=== PATIENT | male | born 1975 | race Caucasian/White ===

== ENCOUNTER 2018-03-31 14:22 | Emergency (ER) | payer OTHER ==
[2018-03-31] MEDS: ONDANSETRON 4MG/2ML VIAL (J2405) IV (15:11)
[2018-03-31 15:12] LABS: KETONE, URINE AUTO RFX NEGATIVE (NEGATIVE); LEUKOCYTE ESTERASE UR AUTO RFX NEGATIVE (NEGATIVE); MUCUS, URINE RFX SMALL (NEGATIVE); NITRITE, URINE AUTO RFX NEGATIVE (NEGATIVE); RBC, URINE AUTO RFX 1 /HPF (0-3); SPECIFIC GRAVITY UR AUTO RFX 1.023 (1.002-1.035); SQUAM EPITHELIAL CELL UR AURFX 0 /HPF (0-6); WBC, URINE AUTO RFX 0 /HPF (0-3)
[2018-03-31] MEDS: NS 1,000 ML IV (15:12)
[2018-03-31 15:23] LABS: BASO # 0.1 10^3/uL (0.0-0.2); BASO % 0.7 % (0.0-1.0); EOS # 0.1 10^3/uL (0.0-0.50); EOS % 1.1 % (0.0-3.0); IMMATURE GRANULOCYTE % 0.4 % (0-3.0); LYMPH # 3.3 10^3/uL (1.5-4.5); LYMPH % 39.1 % (24.0-44.0); MEAN CORPUSCULAR HEMOGLOBIN 29.7 pg (27.0-33.0); MEAN CORPUSCULAR HGB CONC 34.1 g/dl (32.0-36.5); MEAN CORPUSCULAR VOLUME 86.9 fl (80.0-96.0); MONO # 0.6 10^3/uL (0.0-0.8); MONO % 6.6 % (0.0-5.0); NEUTROPHILS # 4.4 10^3/uL (1.8-7.7); NEUTROPHILS % 52.1 % (36.0-66.0); PLATELET COUNT, AUTOMATED 324 10^3/uL (150-450); RED BLOOD COUNT 4.72 10^6/uL (4.30-6.10); RED CELL DISTRIBUTION WIDTH 12.2 % (11.5-14.5); WHITE BLOOD COUNT 8.5 10^3/uL (4.0-10.0)
[2018-03-31 15:41] LABS: ALBUMIN 4.2 GM/DL (3.2-5.2); ALBUMIN/GLOBULIN RATIO 1.14 (1.00-1.93); ALKALINE PHOSPHATASE 83 U/L (45-117); ALT/SGPT 24 U/L (12-78); ANION GAP 6 MEQ/L (8-16); AST/SGOT 25 U/L (7-37); BILIRUBIN,DIRECT 0.1 MG/DL (0.0-0.2); BILIRUBIN,TOTAL 0.5 MG/DL (0.2-1.0); BLOOD UREA NITROGEN 15 MG/DL (7-18); CALCIUM LEVEL 8.9 MG/DL (8.5-10.1); CARBON DIOXIDE LEVEL 30 MEQ/L (21-32); CHLORIDE LEVEL 106 MEQ/L (98-107); CREATININE FOR GFR 0.98 MG/DL (0.70-1.30); GLOMERULAR FILTRATION RATE > 60.0 (>60); GLUCOSE, FASTING 77 MG/DL (70-100); LIPASE 85 U/L (73-393); SODIUM LEVEL 142 MEQ/L (136-145); TOTAL PROTEIN 7.9 GM/DL (6.4-8.2)
[2018-03-31] MEDS ORDERED: ISOVUE-370 76% 100ML VIAL (Q9967) As Ordered (15:47)
== END 2018-03-31 17:39 | disposition home or self-care (01) ==
LOC: M ED 14:22
DX: R10.32 Left lower quadrant pain (principal); R11.0 Nausea
CPT/HCPCS: J2405

== ENCOUNTER 2018-06-16 06:56 | Day surgery (SDC) | payer OTHER ==
[2018-06-16] MEDS: NS 1,000 ML IV (06:00)
[2018-06-16] MEDS ORDERED: PROPOFOL 200 MG/20 ML VIAL As Ordered (07:06)
== END 2018-06-16 09:01 | disposition home or self-care (01) ==
LOC: M OPP 06:56
DX: R93.3 Abnormal findings on diagnostic imaging of other parts of digestive tract (principal); K57.30 Diverticulosis of large intestine without perforation or abscess without bleeding; K64.8 Other hemorrhoids; R10.9 Unspecified abdominal pain; R51 Headache
CPT/HCPCS: 45378

== ENCOUNTER 2019-01-01 13:33 | Emergency (ER) | payer OTHER ==
[~2019-01-01] VITALS: Ht 175.3 cm; Wt 93.6 kg
[~2019-01-01 13:33] MED LIST: MAGN400C3 PO; MULTCAP PO; RIBO400T PO; RIZA5TAB PO
[2019-01-01] MEDS ORDERED: NS 1,000 ML IV ONE (14:15)
[2019-01-01 14:46] LABS: BASO # 0.1 10^3/uL (0.0-0.2); BASO % 0.7 % (0.0-1.0); EOS # 0.1 10^3/uL (0.0-0.50); HEMATOCRIT 43.4 % (42.0-52.0); HEMOGLOBIN 14.8 g/dl (13.5-17.5); LYMPH # 3.4 10^3/uL (1.5-4.5); LYMPH % 41.5 % (24.0-44.0); MEAN CORPUSCULAR HEMOGLOBIN 29.8 pg (27.0-33.0); MEAN CORPUSCULAR HGB CONC 34.1 g/dl (32.0-36.5); MEAN CORPUSCULAR VOLUME 87.3 fl (80.0-96.0); MONO # 0.5 10^3/uL (0.0-0.8); MONO % 6.5 % (0.0-5.0); NEUTROPHILS # 4.1 10^3/uL (1.8-7.7); NEUTROPHILS % 50.2 % (36.0-66.0); PLATELET COUNT, AUTOMATED 337 10^3/uL (150-450); RED BLOOD COUNT 4.97 10^6/uL (4.30-6.10); WHITE BLOOD COUNT 8.2 10^3/uL (4.0-10.0)
[2019-01-01 15:31] LABS: ALBUMIN 4.2 GM/DL (3.2-5.2); ALT/SGPT 27 U/L (12-78); AMYLASE 34 U/L (25-115); BILIRUBIN,DIRECT < 0.1 MG/DL (0.0-0.2); BILIRUBIN,TOTAL 0.4 MG/DL (0.2-1.0); BLOOD UREA NITROGEN 10 MG/DL (7-18); CALCIUM LEVEL 9.1 MG/DL (8.5-10.1); CARBON DIOXIDE LEVEL 29 MEQ/L (21-32); CHLORIDE LEVEL 106 MEQ/L (98-107); CREATININE FOR GFR 0.99 MG/DL (0.70-1.30); GLOMERULAR FILTRATION RATE > 60.0 (>60); GLUCOSE, FASTING 76 MG/DL (70-100); LIPASE 101 U/L (73-393); POTASSIUM SERUM 4.2 MEQ/L (3.5-5.1); SODIUM LEVEL 139 MEQ/L (136-145); TOTAL PROTEIN 7.6 GM/DL (6.4-8.2)
--- NOTE | 2019-01-01 15:32 | REP ---
RIGHT UPPER QUADRANT ULTRASOUND: Real-time sonographic evaluation of the right upper quadrant performed. The gallbladder demonstrates no evidence of intraluminal sludge or calculi, wall thickening or pericholecystic fluid. There is no intrahepatic or extrahepatic biliary dilatation, common bile duct measuring 4 mm diameter. The liver and pancreas demonstrate no gross mass, pancreas not optimally seen due to overlying bowel gas. Right kidney demonstrates no hydronephrosis with normal size 9.3 cm in length. IMPRESSION: Negative right upper quadrant ultrasound. Electronically Signed by Petr Pavon MD 01/02/2019 02:54 P
[2019-01-01] MEDS ORDERED: PROT1TAB2 PO (15:49)
[2019-01-01] MEDS ORDERED: DICY20TA11 PO (15:49)
[2019-01-01 16:05] VITALS: BP 137/64
== END 2019-01-01 16:10 | disposition home or self-care (01) ==
LOC: M ED 13:33
DX: R10.11 Right upper quadrant pain (principal); G89.29 Other chronic pain; Z87.820 Personal history of traumatic brain injury

== ENCOUNTER → 2019-01-18 | Outpatient (REF) | payer OTHER ==
[~2019-01-18] MED LIST changes: +DICY20TA11 PO; +PROT1TAB2 PO
[2019-01-18 19:09] LABS: ALBUMIN 4.1 GM/DL (3.2-5.2); ALT/SGPT 26 U/L (12-78); BILIRUBIN,TOTAL 0.5 MG/DL (0.2-1.0); BLOOD UREA NITROGEN 10 MG/DL (7-18); CALCIUM LEVEL 9.1 MG/DL (8.5-10.1); CARBON DIOXIDE LEVEL 26 MEQ/L (21-32); CHLORIDE LEVEL 104 MEQ/L (98-107); CREATININE FOR GFR 0.92 MG/DL (0.70-1.30); FOLATE 12.8 NG/ML (>5.4); GLOMERULAR FILTRATION RATE > 60.0 (>60); GLUCOSE, FASTING 76 MG/DL (70-100); POTASSIUM SERUM 4.5 MEQ/L (3.5-5.1); RHEUMATOID FACTOR QUANT < 10.0 IU/ML (<15.0); SODIUM LEVEL 138 MEQ/L (136-145); TOTAL PROTEIN 7.5 GM/DL (6.4-8.2)
[2019-01-19 10:39] LABS: DRVV SCREEN 34.5 SEC; PTT LUPUS TYPE ANTICOAG SCREEN 0.9 (0-1.2)
[2019-01-19 13:28] LABS: ALBUMIN 4.64 GM/DL (3.29-5.55); ALBUMIN % 61.8 % (55.8-66.1); ALPHA-1-GLOBULIN % 3.8 % (2.9-4.9); ALPHA-1-GLOBULINS 0.29 GM/DL (0.17-0.41); ALPHA-2-GLOBULINS 0.68 GM/DL (0.42-0.99); ALPHA-2-GLOBULINS % 9.1 % (7.1-11.8); BETA-1-GLOBULINS 0.44 GM/DL (0.28-0.60); BETA-1-GLOBULINS % 5.9 % (4.7-7.2); BETA-2-GLOBULINS 0.39 GM/DL (0.19-0.55); BETA-2-GLOBULINS % 5.2 % (3.2-6.5); GAMMA GLOBULIN % 14.2 % (11.1-18.8); GAMMA GLOBULINS 1.07 GM/DL (0.65-1.58)
[2019-01-21 14:10] LABS: ANCA-ATYPICAL <1:20 titer (Neg:<1:20); ANTI DS-DNA AB <1:10 titer (.); ANTINUCLEAR ANTIBODIES DIRECT Negative (Negative); CYTOPLASMIC NEUTROP AB ANCA-C <1:20 titer (Neg:<1:20); PERINUCLEAR AB ANCA-P <1:20 titer (Neg:<1:20); SJOGREN'S ANTI SS-A 0.3 AI (0.0-0.9); SJOGREN'S ANTI SS-B <0.2 AI (0.0-0.9); VITAMIN E(ALPHA TOCOPHEROL) 9.7 mg/L (7.0-25.1); VITAMIN E(GAMMA TOCOPHEROL) 1.3 mg/L (0.5-5.5)
== END ==
LOC: M LABNEURO 09:40
PROVIDERS: ATTEND Psychiatry & Neurology Neurology
DX: G31.84 Mild cognitive impairment of uncertain or unknown etiology (principal)

== ENCOUNTER 2019-10-22 01:02 | Emergency (ER) | payer OTHER ==
[~2019-10-22] VITALS: Ht 175.3 cm; Wt 90.7 kg
--- NOTE | 2019-10-22 01:38 | REPVR ---
PROCEDURE INFORMATION: Exam: CT Head Without Contrast Exam date and time: 10/22/2019 1:13 AM Age: 44 years old Clinical indication: Injury or trauma; Injury history: Hit head; Initial encounter; Concussion / head injury; Consciousness not specified TECHNIQUE: Imaging protocol: Computed tomography of the head without contrast. Radiation optimization: All CT scans at this facility use at least one of these dose optimization techniques: automated exposure control; mA and/or kV adjustment per patient size (includes targeted exams where dose is matched to clinical indication); or iterative reconstruction. COMPARISON: No relevant prior studies available. FINDINGS: Brain: Normal. No hemorrhage. Unremarkable white matter. No mass effect. Ventricles: Normal. No ventriculomegaly. Bones/joints: Unremarkable. No acute fracture. Sinuses: Visualized sinuses are unremarkable. No fluid levels. Mastoid air cells: Visualized mastoid air cells are well aerated. Soft tissues: Unremarkable. IMPRESSION: No acute intracranial abnormality. Electronically signed by: Edward Mahoney On 10/22/2019 01:38:10 AM
[2019-10-22] MEDS ORDERED: SUMAtriptan SUCCINATE 6 MG/0.5 ML VIAL SC ONE (03:45)
[2019-10-22 04:56] VITALS: BP 129/72
== END 2019-10-22 05:18 | disposition home or self-care (01) ==
LOC: M ED 01:02
DX: R51 Headache (principal); Z87.820 Personal history of traumatic brain injury; Z79.899 Other long term (current) drug therapy

== ENCOUNTER 2021-07-13 07:44 | Emergency (ER) | payer OTHER ==
[~2021-07-13] VITALS: Ht 175.3 cm; Wt 96.2 kg
[~2021-07-13 07:44] MED LIST changes: -RIZA5TAB PO; +RIZA5TAB2 PO
[2021-07-13] MEDS ORDERED: BUPR150T5 PO (07:52)
[2021-07-13] MEDS ORDERED: DICYCLOMINE 10 MG CAP PO ONE (10:40)
[2021-07-13] MEDS ORDERED: GI COCKTAIL 50ML BTL(HYOSCYAMINE/MAALOX/LIDOCAINE VISCOUS)(1:3:1) PO ONE (10:40)
[2021-07-13 10:49] LABS: RSV AMPLIFICATION NEGATIVE (NEGATIVE)
[2021-07-13] MEDS ORDERED: KETOROLAC 30 MG/ML 1ML VIAL IV ONE (11:35)
[2021-07-13] MEDS ORDERED: ONDANSETRON 4MG/2ML VIAL IV ONE (11:35)
[2021-07-13] MEDS ORDERED: PANTOPRAZOLE 40MG VIAL (C9113 PER 1) IV ONE (11:35)
[2021-07-13 11:57] LABS: BASO # 0.1 10^3/uL (0.0-0.2); BASO % 0.5 % (0.0-1.0); EOS # 0.1 10^3/uL (0.0-0.5); EOS % 0.8 % (0.0-3.0); HEMATOCRIT 43.1 % (42.0-52.0); HEMOGLOBIN 14.2 g/dl (13.5-17.5); LYMPH # 2.6 10^3/uL (1.5-5.0); LYMPH % 21.3 % (24.0-44.0); MEAN CORPUSCULAR HEMOGLOBIN 29.7 pg (27.0-33.0); MEAN CORPUSCULAR HGB CONC 32.9 g/dl (32.0-36.5); MEAN CORPUSCULAR VOLUME 90.2 fl (80.0-96.0); MONO # 0.7 10^3/uL (0.0-0.8); NEUTROPHILS # 8.6 10^3/uL (1.5-8.5); NEUTROPHILS % 71.1 % (36.0-66.0); PLATELET COUNT, AUTOMATED 397 10^3/uL (150-450); RED BLOOD COUNT 4.78 10^6/uL (4.30-6.10); WHITE BLOOD COUNT 12.1 10^3/uL (4.0-10.0)
[2021-07-13 12:29] LABS: ALT/SGPT 29 U/L (12-78); BILIRUBIN,DIRECT 0.1 MG/DL (0.0-0.2); BILIRUBIN,TOTAL 0.4 MG/DL (0.2-1.0); BLOOD UREA NITROGEN 11 MG/DL (7-18); CALCIUM LEVEL 9.3 MG/DL (8.5-10.1); CARBON DIOXIDE LEVEL 27 MEQ/L (21-32); CHLORIDE LEVEL 106 MEQ/L (98-107); CREATININE FOR GFR 0.98 MG/DL (0.70-1.30); GLOMERULAR FILTRATION RATE > 60.0 (>60); GLUCOSE, FASTING 80 MG/DL (70-100); LIPASE 82 U/L (73-393); POTASSIUM SERUM 4.2 MEQ/L (3.5-5.1); SODIUM LEVEL 139 MEQ/L (136-145); TOTAL PROTEIN 7.6 GM/DL (6.4-8.2)
[2021-07-13] MEDS ORDERED: ISOVUE-370 76% 100ML VIAL As Ordered ONE (12:45)
--- NOTE | 2021-07-13 13:19 | REP ---
INDICATION: lower abd pain, elev WBC. COMPARISON: 03/31/2018. TECHNIQUE: After bolus of 100 mL Isovue 370 scanning through the abdomen and pelvis with coronal and sagittal reconstructions provided. FINDINGS: CT abdomen: Lung bases show no infiltrate, effusion or nodules. There is some cylindrical bronchiectatic change, mild there is minor curvilinear fibrotic change in the posterior basal segment right lower lobe. Heart not enlarged there is no pericardial thickening or effusion nor hiatal hernia. Liver shows a low-density focus peripherally in the right hepatic lobe most consistent with a small cyst or other benign finding there are couple of subcapsular low-density foci 1 posteriorly and 1 more anteriorly in the right hepatic lobe on image 30 and a few other scattered small sub cm low-density foci in all of these unchanged and consistent with benign finding. No biliary dilatation or adjacent ascites. Gallbladder shows no calcified stone or mass. Adrenal glands are normal. The pancreas, spleen and kidneys are grossly unremarkable. No hydronephrosis, stone or solid mass. Subcentimeter cortical cyst lower pole on the right. Aorta without aneurysm or dissection. No pathologic sized periaortic, other retroperitoneal or mesenteric lymphadenopathy. Small bowel loops without acute finding. Colon shows scattered stool and gas without signs of colitis or diverticulitis. There is a small hernia of omental fat only at the umbilicus with no tethering or bowel herniation. Lung window review of all CT slices in the abdomen pelvis shows no perforation or free air. The bone windows show lumbar and lower thoracic spine, their posterior elements and visualized ribs all grossly intact CT pelvis: The sacrum, SI joints, pelvis and hips are without acute finding. There is some diverticulosis of the distal left colon and sigmoid with zone of diverticulitis in the proximal sigmoid in the left lower quadrant I do not see perforation or abscess. Mid to distal sigmoid and rectum grossly intact no pathologic sized pelvic lymphadenopathy. Bladder without wall thickening, mass or stone. No dilated distal ureter or ureteral stone. No pathologic sized inguinal adenopathy. No inguinal hernia or midline pelvic ventral hernia. IMPRESSION: 1. Left lower quadrant zone of the sigmoid diverticulitis with inflammatory changes in the adjacent fat but no perforation, abscess, ascites or other significant finding. Remainder of the sigmoid colon and abdominal portion of the left colon were unremarkable. 2. Liver with a few small hypodense nodules unchanged from previous study consistent with benign finding, most likely small cysts or hemangiomas. 3. Otherwise negative exam. <Electronically signed by Santiago Escobar > 07/13/21 [id number]
--- NOTE | 2021-07-13 14:08 | REP ---
INDICATION: anterior neck swelling, pain, left side only, dysphagia. COMPARISON: None. TECHNIQUE: 3 mm axial images were obtained through the neck following the infusion of 100 cc of Isovue 370 sagittal and coronal reconstructions were obtained from the original data set. FINDINGS: There is normal alignment of the cervical spine. Mild degenerative changes are present in the cervical spine maximal at C4/5 where there is [id number] bilateral foraminal stenosis. No significant foraminal stenosis is seen elsewhere. No acute fracture is identified. There is some artifact from dental amalgam in the oropharynx but no definite abnormality is appreciated. The visualized parotid and submandibular glands are thought to be normal. Scattered nonenlarged lymph nodes are present in the submandibular regions as well as along the jugular digastric chain. No discrete mass or evidence of abscess is identified. The thyroid appears normal. No definite abnormality is appreciated in the partially visualized upper lung apices. Minimal mucoperiosteal thickening is noted in the left maxillary antrum but no air-fluid level is present. The common carotid, internal and external carotids on both sides appear normal as do both vertebral arteries with no stenosis or occlusion. IMPRESSION: Mild cervical spondylosis with mild to moderate bilateral foraminal stenosis at C4/5. 2. No inflammatory mass or abscess is identified. <Electronically signed by Jay Silverman > 07/13/21 [id number]
[2021-07-13] MEDS ORDERED: AUGMENTIN 875 MG TAB PO ONE (14:30)
[2021-07-13] MEDS ORDERED: AUGM875T28 PO (14:31)
[2021-07-13] MEDS ORDERED: ONDA4TAB6 PO (14:31)
[2021-07-13] MEDS ORDERED: FLON1SPR NARES (14:31)
[2021-07-13] MEDS ORDERED: PSEU120T19 PO (14:31)
[2021-07-13 14:52] VITALS: BP 107/68
== END 2021-07-13 14:54 | disposition home or self-care (01) ==
LOC: M ED 07:44
DX: K57.92 Diverticulitis of intestine, part unspecified, without perforation or abscess without bleeding (principal); J02.9 Acute pharyngitis, unspecified; R09.81 Nasal congestion; Z79.899 Other long term (current) drug therapy
CPT/HCPCS: 70491; 74177; 80048; 80076; 81001; 83690; 85025; 87631; 87880; 96374; 96375; 99284; C9113; J1885; J2405; Q9967

== ENCOUNTER 2024-01-21 06:17 | Emergency (ER) | payer OTHER ==
[~2024-01-21 06:17] MED LIST changes: +AUGM875T28 PO; +BUPR-71 PO; -DICY20TA11 PO; +DICY20TA20 PO; +FLON1SPR NARES; +ONDA4TAB6 PO; +PSEU120T19 PO
[2024-01-21] MEDS ORDERED: B-2100TA PO (08:43)
[2024-01-21] MEDS ORDERED: SUMA25TA3 PO (08:43)
[2024-01-21] MEDS ORDERED: ROSU40TA63 PO (08:43)
[2024-01-21] MEDS ORDERED: RAMI1.258 PO (08:43)
[2024-01-21] MEDS ORDERED: LATU80TA2 PO (08:43)
[2024-01-21] MEDS ORDERED: ISOVUE-370 76% 100ML VIAL As Ordered ONE (08:55)
[2024-01-21] MEDS ORDERED: MAGN400T2 PO (10:19)
[2024-01-21] MEDS ORDERED: RAMI2.5C42 PO (10:19)
[2024-01-21] MEDS ORDERED: SUMA100T2 PO (10:19)
[2024-01-21] MEDS ORDERED: HOME MED LIST COMPLETE! XX SCH (10:20)
[2024-01-21 10:30] VITALS: BP 115/68; O2SAT 97
[2024-01-21] MEDS ORDERED: AMOX500T PO (10:52)
[2024-01-21 10:59] VITALS: TEMP 98.4
[2024-01-21] MEDS ORDERED: VENTAER INH (14:30)
== END 2024-01-21 11:00 | disposition home or self-care (01) ==
LOC: M ED 06:17
DX: J18.9 Pneumonia, unspecified organism (principal); I10 Essential (primary) hypertension; E78.5 Hyperlipidemia, unspecified; F32.9 Major depressive disorder, single episode, unspecified; Z87.820 Personal history of traumatic brain injury; Z79.899 Other long term (current) drug therapy
CPT/HCPCS: 71045; 71275; 80047; 93005; 99284; Q9967

== ENCOUNTER 2024-01-21 12:37 | Emergency (ER) | payer OTHER ==
[~2024-01-21 12:37] MED LIST changes: +AMOX500T PO; +B-2100TA PO; +LATU80TA2 PO; +MAGN400T2 PO; +RAMI1.258 PO; +RAMI2.5C42 PO; +ROSU40TA63 PO; +SUMA100T2 PO; +SUMA25TA3 PO
[2024-01-21] MEDS ORDERED: HOME MED LIST COMPLETE! XX SCH (12:55)
[2024-01-21] MEDS: ONDANSETRON 4MG 2ML VIAL IV ONE (13:18)
[2024-01-21] MEDS: cefTRIAXone SOD 1 GM in D5W MINI-BAG PLUS 50 ML IV ONE (13:19)
[2024-01-21] MEDS: KETOROLAC 30 MG/ML 1ML VIAL IV ONE (13:19)
[2024-01-21 14:30] VITALS: BP 109/64; TEMP 97; O2SAT 91
[2024-01-21] MEDS ORDERED: VENTAER INH (14:30)
== END 2024-01-21 14:46 | disposition home or self-care (01) ==
LOC: M ED 12:37 → EDBD 12:37 → M ED 14:46
DX: J18.9 Pneumonia, unspecified organism (principal); V48.5XXA Car driver injured in noncollision transport accident in traffic accident, initial encounter; Y92.9 Unspecified place or not applicable; Y93.9 Activity, unspecified; Y99.9 Unspecified external cause status; F32.A Depression, unspecified; Z87.820 Personal history of traumatic brain injury; E78.5 Hyperlipidemia, unspecified; I10 Essential (primary) hypertension; Z79.899 Other long term (current) drug therapy
CPT/HCPCS: 96365; 96375; 99284; J0696; J1885; J2405

== ENCOUNTER → 2024-05-27 | Outpatient (CLI) | payer OTHER ==
[~2024-05-27] MED LIST changes: +ONDA-282 PO; -ONDA4TAB6 PO; -ROSU40TA63 PO; +ROSU40TA81 PO; +VENTAER INH
== END ==
LOC: M RAD 07:16
PROVIDERS: ATTEND Internal Medicine
DX: R10.11 Right upper quadrant pain (principal)

== ENCOUNTER → 2024-08-26 | Outpatient (CLI) | payer OTHER | LOC: M SLEEP 20:00 | PROVIDERS: ATTEND Internal Medicine | DX: R06.83 Snoring (principal) ==